=== PATIENT | female | born 1950 | race African-American/Black ===

== ENCOUNTER → 2016-06-19 | Outpatient (CLI) | payer MEDICARE ==
[~2016-06-19] MED LIST: ADAL30TA10 PO; DICY1TAB26 PO; DOXY100T PO; ESTR1TAB68 PO; LEXA10TA PO; LOMO PO; METO50TA PO; SULF-154 PO
[2016-06-19 10:15] LABS: BLOOD GAS BASE EXCESS -4.8 mmol/L (-2-2); BLOOD GAS CARBOXYHEMOGLOBIN 1.6 % (0-4); BLOOD GAS HCO3 19 mmol/L (22-26); BLOOD GAS METHEMOGLOBIN 1.2 % (0-2); BLOOD GAS O2 HGB SATURATION 94 % (90-100); BLOOD GAS PCO2 31 mmHg (38-42); BLOOD GAS PO2 95 mmHg (61-120); BLOOD GAS TOTAL HGB 11.2 G/DL (12.0-16.0); CRITICAL VALUE NO; DRAW SITE RT RADIAL; FIO2 21 %; NUMBER OF ARTERIAL PUNCTURES 1; STAT NO; TEMP CORR TO 98.6; ULNAR PULSE PRESENT
--- NOTE | 2016-07-01 08:43 | RSPPFT ---
DATE OF PROCEDURE: 06/19/16 COMMENTS: Spirometry with FVC of 1.4, FEV1 of 0.6 and FEV1/FVC ratio at 44%. There is a positive and significant response to acutely inhaled bronchodilator. Room air arterial blood gases show pH of 7.41, PCO2 of 31, PO2 of 95. Slow vital capacity at 64% of predicted. Diffusion capacity is 57% of predicted and normal when corrected for alveolar volume. IMPRESSION: 1. Severe airways obstruction. 2. Associated mild reduction in diffusion capacity however, normal when corrected for alveolar Volume. 3. Adequate oxygenation and alveolar ventilation.
== END ==
LOC: HRSP 10:01
PROVIDERS: ATTEND Internal Medicine Sleep Medicine
DX: R06.89 Other abnormalities of breathing (principal)
CPT/HCPCS: 36600; 82805; 94060; 94726; 94729